=== PATIENT | female | born 1985 | race Caucasian/White ===

== ENCOUNTER 2018-08-28 11:35 | Day surgery (SDC) | payer OTHER ==
[2018-08-28] MEDS ORDERED: IRON SUCROSE INJECTION 200 MG in SODIUM CHLORIDE 100 ML IVPB ONE (13:10)
[2018-08-28 13:50] VITALS: TEMP 97.3
[2018-08-28 13:59] VITALS: BP 93/66; PULSE 64
== END 2018-08-28 14:05 | disposition home or self-care (01) ==
LOC: JINFUSION 11:35 → J7W 11:40 → JINFUSION 14:05
PROVIDERS: ATTEND Family Medicine
PROC: 3E033GC Introduction of Other Therapeutic Substance into Peripheral Vein, Percutaneous Approach (ICD-10-PCS; principal; 2018-08-28)
DX: D50.9 Iron deficiency anemia, unspecified (principal)
CPT/HCPCS: 96365; J1756

== ENCOUNTER 2018-09-05 09:45 | Day surgery (SDC) | payer OTHER ==
[2018-09-05] MEDS ORDERED: ACETAMINOPHEN 325 MG TABLET (FP) PO ONE (10:30)
[2018-09-05] MEDS ORDERED: IRON SUCROSE INJECTION 200 MG in SODIUM CHLORIDE 100 ML IVPB SCH (11:00)
[2018-09-05 14:27] VITALS: TEMP 97.9
[2018-09-05 14:39] VITALS: BP 98/60; PULSE 60
== END 2018-09-05 13:10 | disposition home or self-care (01) ==
LOC: JINFUSION 09:45 → J7W 09:47 → JINFUSION 13:10
PROVIDERS: ATTEND Family Medicine
DX: D50.9 Iron deficiency anemia, unspecified (principal)
CPT/HCPCS: 96365; J1756

== ENCOUNTER 2018-09-12 10:00 | Day surgery (SDC) | payer OTHER ==
[2018-09-12] MEDS ORDERED: methylPREDNISolone NA SUCC 40 MG/1 ML VIAL IVPUSH PRN (10:36)
[2018-09-12] MEDS ORDERED: diphenhydrAMINE HCL 25 MG CAPSULE (FP) PO ONE (10:45)
[2018-09-12] MEDS ORDERED: IRON SUCROSE INJECTION 200 MG in SODIUM CHLORIDE 100 ML IVPB ONE (11:00)
[2018-09-12 14:34] VITALS: BP 100/60; PULSE 60
[2018-09-12 14:59] VITALS: TEMP 97.4
== END 2018-09-12 12:00 | disposition home or self-care (01) ==
LOC: JINFUSION 10:00 → J7W 10:03 → JINFUSION 12:00
PROVIDERS: ATTEND Family Medicine
PROC: 3E033GC Introduction of Other Therapeutic Substance into Peripheral Vein, Percutaneous Approach (ICD-10-PCS; principal; 2018-09-12)
DX: D50.9 Iron deficiency anemia, unspecified (principal)
CPT/HCPCS: 96365; 96372; J1756

== ENCOUNTER 2018-09-19 07:26 | Day surgery (SDC) | payer OTHER ==
[2018-09-19] MEDS ORDERED: diphenhydrAMINE HCL 25 MG CAPSULE (FP) PO PRN (07:54)
[2018-09-19] MEDS ORDERED: HYDROCORTISONE SOD SUCCINATE 100 MG/2 ML VIAL IVPUSH PRN (07:55)
[2018-09-19] MEDS ORDERED: IRON SUCROSE INJECTION 200 MG in SODIUM CHLORIDE 100 ML IVPB ONE (09:00)
[2018-09-19 15:36] VITALS: PULSE 59; TEMP 97.9
[2018-09-19 15:39] VITALS: BP 105/58
== END 2018-09-19 10:45 | disposition home or self-care (01) ==
LOC: JINFUSION 07:26 → J7W 07:26 → JINFUSION 10:45
PROVIDERS: ATTEND Family Medicine
PROC: 3E033GC Introduction of Other Therapeutic Substance into Peripheral Vein, Percutaneous Approach (ICD-10-PCS; principal; 2018-09-19)
DX: D50.9 Iron deficiency anemia, unspecified (principal)
CPT/HCPCS: 96365; J1756

== ENCOUNTER 2018-09-26 08:08 | Day surgery (SDC) | payer OTHER ==
[2018-09-26] MEDS ORDERED: diphenhydrAMINE HCL 25 MG CAPSULE (FP) PO PRN (08:59)
[2018-09-26] MEDS ORDERED: HYDROCORTISONE SOD SUCCINATE 100 MG/2 ML VIAL IVPUSH PRN (08:59)
[2018-09-26] MEDS ORDERED: IRON SUCROSE INJECTION 200 MG in SODIUM CHLORIDE 90 ML IVPB ONE (09:30)
[2018-09-26 12:58] VITALS: BP 91/52; PULSE 68; TEMP 98.1
== END 2018-09-26 12:00 | disposition home or self-care (01) ==
LOC: JINFUSION 08:08 → J7W 08:09 → JINFUSION 12:00
PROVIDERS: ATTEND Family Medicine
PROC: 3E033GC Introduction of Other Therapeutic Substance into Peripheral Vein, Percutaneous Approach (ICD-10-PCS; principal; 2018-09-26)
DX: D50.9 Iron deficiency anemia, unspecified (principal)
CPT/HCPCS: 96365; J1756

== ENCOUNTER 2022-01-08 09:55 | Day surgery (SDC) | payer BC ==
[2022-01-08] MEDS ORDERED: FERRIC CARBOXYMALTOSE 750 MG in SODIUM CHLORIDE 250 ML IVPB ONE (10:45)
[2022-01-08 11:49] VITALS: BP 98/61; PULSE 60; RESP 16; TEMP 98.2
== END 2022-01-08 11:30 | disposition home or self-care (01) ==
LOC: FINFUSION 09:55 → FM/S 09:58 → FINFUSION 11:30
PROVIDERS: ATTEND Family Medicine
PROC: 3E033GC Introduction of Other Therapeutic Substance into Peripheral Vein, Percutaneous Approach (ICD-10-PCS; principal; 2022-01-08)
DX: D50.9 Iron deficiency anemia, unspecified (principal)
CPT/HCPCS: 81025; 96365; J1439

== ENCOUNTER 2022-01-15 10:19 | Day surgery (SDC) | payer BC ==
[2022-01-15] MEDS ORDERED: FERRIC CARBOXYMALTOSE 750 MG in SODIUM CHLORIDE 250 ML IVPB ONE (11:00)
[2022-01-15 11:52] VITALS: BP 104/51; PULSE 63; RESP 16; TEMP 98
== END 2022-01-15 12:27 | disposition home or self-care (01) ==
LOC: FINFUSION 10:19 → FM/S 10:20 → FINFUSION 12:27
PROVIDERS: ATTEND Family Medicine
PROC: 3E033GC Introduction of Other Therapeutic Substance into Peripheral Vein, Percutaneous Approach (ICD-10-PCS; principal; 2022-01-15)
DX: D50.9 Iron deficiency anemia, unspecified (principal)
CPT/HCPCS: 81025; 96365; J1439

== ENCOUNTER 2024-09-04 12:44 | Day surgery (SDC) | payer BC ==
[2024-09-04] MEDS: FERRIC CARBOXYMALTOSE 750 MG in SODIUM CHLORIDE 250 ML IVPB ONE (15:05)
[2024-09-04 16:02] VITALS: RESP 18; TEMP 97.7
[2024-09-04 16:06] VITALS: BP 100/63; PULSE 67
== END 2024-09-04 16:15 | disposition home or self-care (01) ==
LOC: JINFUSION 12:44 → J7W 12:48 → JINFUSION 16:15
PROVIDERS: ATTEND Family Medicine
PROC: 3E033GC Introduction of Other Therapeutic Substance into Peripheral Vein, Percutaneous Approach (ICD-10-PCS; principal; 2024-09-04)
DX: D50.9 Iron deficiency anemia, unspecified (principal)
CPT/HCPCS: 96365; J1439